=== PATIENT | female | born 1960 | race African-American/Black ===

== ENCOUNTER 2020-11-10 14:30 | Outpatient (RCR) | payer MEDICARE, SELFPAY ==
[2014-04-02 06:34] VITALS: BMI 34.6
[2020-11-10] MEDS: COVID-19 VACC, MRNA(PFIZER)/PF 30 MCG/0.3 ML SYRINGE IM (11:11)
[2020-12-01] MEDS: COVID-19 VACC, MRNA(PFIZER)/PF 30 MCG/0.3 ML SYRINGE IM (11:21)
== END 2021-02-02 23:59 ==
LOC: IMMUN 14:30
PROVIDERS: Visit Provider Family Medicine
DX: Z23 Encounter for immunization (principal)
CPT/HCPCS: 0001A; 0002A; 91300

== ENCOUNTER 2024-02-20 16:29 | Emergency (ER) | payer SELFPAY ==
[2024-02-20 16:30] VITALS: BP 123/87; PULSE 74; RESP 22; TEMP 36.1; O2SAT 100
--- NOTE | 2024-02-20 17:02 | RAD_ITS ---
INDICATION: pain EXAMINATION/TECHNIQUE: X-RAY - XR Hip Unilateral with Pelvis when performed; Min 4 Views COMPARISON: Pelvis with AP and frog-leg left hip FINDINGS: PELVIC BONES: No displaced fracture, destructive or sclerotic lesions. Note that overlapping bowel shadows may however obscure fine detail. Sacroiliac joints are unremarkable. No widening of the pubic symphysis. Moderate bilateral lower lumbar facet arthropathy. HIPS: Normal bilateral hip alignment with mild right hip joint space narrowing and osteophyte formation. Left hip joint spacing is grossly preserved. . SOFT TISSUES: No soft tissue swelling or gas. Multiple pelvic phleboliths. RAD/HIP, UNI W/ Pelvis 2-3 Views IMPRESSION: No evidence of displaced pelvic or hip fracture. Mild right hip degenerative change. Electronically Signed: Faisal Markham MD at 17:53 EDT ,
[2024-02-20 17:31] VITALS: BP 126/64; PULSE 68; RESP 20; O2SAT 98; BMI 38.3
[2024-02-20] MEDS: Morphine 4 MG/ML Syringe IV (19:04)
[2024-02-20] MEDS: Ondansetron 4 MG/2 ML Vial IV (19:05)
--- NOTE | 2024-02-20 20:35 | EDS_ITS ---
HPI History of Present Illness Chief Complaint: Lower Extremity Injury Informant: patient Onset/Context/Timing Onset: Weeks Injury: other (No known history of trauma) Timing: Continuous Quality: Dull and Aching Location: Lumbar, Buttock and Left Leg Current Severity: Moderate Maximum Severity: Severe Worsened by: improves with Movement and Bending Relieved by: Nothing Associated Symptoms Associated Symptoms: Radiation to Left Leg and - (She denies saddle anesthesia or paresthesia. She reports a foot drop on the left. She denies buckling of the knees going up or down steps. She has had no recent dental procedure.); Negative for Numbness, Tingling, Radiation to Right Leg, Fever, Abdominal Pain, Dysuria, Unable to Ambulate, Unable to Transfer, Urinary Retention, Urinary Incontinence, Constipation or Fecal Incontinence Narrative Narrative: Patient is a 63-year-old woman who presents with left lower back pain rating down the posterior aspect of her left leg to her foot midfoot plantar surface. She had a CT and MRI performed of her back. They CT revealed significant degenerative changes. MRI reveals marked degenerative changes as well. There is a mild generalized disc bulge noted at L2-L3 with facet arthropathy. There is a mild generalized disc bulge at L3-L4 with arthropathy and facet joint effusion. There is a generalized disc bulge eccentric to the left on L4-5. There is also a generalized disc bulge at L5-S1. The impression by Dr. Andreea Berry is mild multilevel degenerative changes. There is no severe canal or neural foramen stenosis. Patient denies fever, chills night sweats. Patient denies urologic symptoms of dysuria, frequency, urgency or hematuria. Nothing has helped her pain. [facility] and referred to the emergency room for back pain control. Since patient complained of pain in her thigh and x-ray was obtained of her hip per nurse protocol. This was reviewed by me and is negative. Prior similar symptoms: Yes Recent Illness/Hospitalization: No PFSH PFSH Medical History no medical history Home Medications ?Medication ?Instructions ?Recorded ?Last Taken ?Type ibuprofen 600 mg tablet 600 mg PO Q6H PRN PRN 04/04/14 Unknown Rx Mild/Moderate Pain ##40 cyclobenzaprine 10 mg tablet 10 mg PO TID 02/20/24 Unknown History gabapentin 300 mg capsule mg PO 02/20/24 Unknown History hydrocodone-acetaminophen 5-325mg 1 tab PO Q6H PRN PRN Pain 3 days 02/20/24 Unknown Rx 5mg-325mg #10 TABLETS Allergy/AdvReac Type Severity Reaction Status Date / Time No Known Allergies Allergy Verified 02/20/24 17:40 Family History Mother Diabetes Family History no significant family his Surgical History (Updated 02/20/24 @ 17:36 by Leandra Patel) History of ankle surgery History of hysterectomy Social History household members: spouse and family current occupational status: retired Smoking Status: Never smoker ROS ROS ED Constitutional Constitutional ED: Denies chills, fever(s), subjective or sweats Cardiovascular Cardiovascular: Denies chest pain, orthopnea or palpitations Respiratory/Chest Respiratory/Chest: Denies dyspnea, dyspnea on exertion or orthopnea Gastrointestinal Gastrointestinal: Denies abdominal pain, constipation, diarrhea, melena, nausea or vomiting Genitourinary Genitourinary ED: Denies dysuria, hematuria or urinary frequency Musculoskeletal Musculoskeletal: Reports back pain Neurologic Neurologic: Denies paresthesias or weakness Psychiatric Psychiatric: Denies anxiety or depression Hematologic/Lymphatic Hematologic/Lymphatic: Denies easy bleeding or easy bruising EXAM Physical Exam Const Vital Signs: 02/20/24 16:30 02/20/24 17:31 Temperature 97 F L Temperature Source Temporal Pulse Rate 74 68 Respiratory Rate 22 H 20 H Blood Pressure 123/87 H 126/64 H Blood Pressure Mean 99 84 Pulse Ox 100 98 Oxygen Delivery Method Room Air Room Air Positive well nourished and well developed Constitutional Narrative: BMI is 38.4. Patient appears uncomfortable. General Appearance ED: well developed; Negative for pallor HEENT HEENT Narrative: Head is atraumatic normocephalic. Ears normal. Nares patent. Mucosa moist. Eyes PERRL and EOMs intact bilaterally General Eye ED: Negative for pale conjunctiva or scleral icterus Neck no lymphadenopathy and supple Resp normal respiratory effort and clear to auscultation bilaterally Cardio regular rate, S1 normal heart sound, S2 normal heart sound and no murmurs GI normal to inspection, nondistended, normoactive bowel sounds, soft to palpation, non-tender, non-distended and no masses Back/Spine normal to inspection; Negative for no thoracic nor lumbar tenderness Back/Spine Narrative: Straight leg test is negative right and left. Patella and ankle reflex are 1+. Patient reported abnormal sensation S1 dermatome. L3-L5 is normal. There is no clonus Babinski sign. After patient was medicated she ambulated. There is no foot drop. Able to walk on heels and toes. Able to perform 1 legged squat. General Back: Negative for CVA tenderness Extremity normal to inspection and no clubbing, cyanosis or edema Neuro oriented x3 and no sensory deficits noted Motor Exam: strength 5/5 throughout Deep Tendon Reflexes: Rt Patellar (L4): 1+, Lt Patellar (L4): 1+, Rt Ankle (S1): 1+ and Lt Ankle (S1): 1+ Deep Tendon Reflexes Back: Rt Patellar (L4): 1+, Lt Patellar (L4): 1+, Rt Ankle (S1): 1+ and Lt Ankle (S1): 1+ Plantar Reflex: Downgoing: bilateral Psych mental status grossly normal Skin no rashes or lesions noted and no wounds General Skin Exam: Negative for jaundice or pallor MDM MDM MDM Narrative Medical decision making narrative: Patient has sciatica. Images were not obtained since I was able to access her CT and MRI lumbar interpretations. These were documented HPI. Patient was medicated improved. She was discharged home with pain medicine. She was encouraged to follow-up with pain management. Radiography Diagnostic Testing: Clinical Impression(s) from Imaging Studies Hip/Pelvis X-Ray 02/20/24 17:02 IMPRESSION: No evidence of displaced pelvic or hip fracture. Mild right hip degenerative change. Electronically Signed: Faisal Markham MD at 17:53 EDT , Discharge Plan Triage Chief Complaint: Lower Extremity Injury ED Provider: Hardik Mccarthy Dx/Rx/DC Orders Clinical Impression: DDD (degenerative disc disease), lumbar, Acute left-sided back pain with sciatica Instructions: ED Degenerative Disk Disease, ED Sciatica Prescriptions: New hydrocodone-acetaminophen 5-325 mg tablet 1 tab PO Q6H PRN PRN (Reason: Pain) 3 Days Qty: 10 0RF No Action ibuprofen 600 MG tablet 600 mg PO Q6H PRN PRN (Reason: Mild/Moderate Pain) Qty: 40 1RF Patient Comments: Pain Medication cyclobenzaprine 10 mg tablet 10 mg PO TID gabapentin 300 mg capsule PO Primary Care Provider: Dilcia Barksdale Referrals: Dilcia Barksdale DO [Primary Care Provider] - Print Language: Citizen Of [place] Disposition Disposition: Home, Self Care
[2024-02-20 20:50] VITALS: BP 119/76; PULSE 67; RESP 16; TEMP 36.1; O2SAT 98
== END 2024-02-20 20:51 | disposition home or self-care (01) ==
PROVIDERS: Emergency Provider Emergency Medicine; Visit Provider Emergency Medicine
DX: M51.36 Other intervertebral disc degeneration, lumbar region (principal); M16.11 Unilateral primary osteoarthritis, right hip; M54.32 Sciatica, left side; M46.86 Other specified inflammatory spondylopathies, lumbar region; M51.37 Other intervertebral disc degeneration, lumbosacral region; M25.48 Effusion, other site; M47.816 Spondylosis without myelopathy or radiculopathy, lumbar region
CPT/HCPCS: 73502; 96374; 96375; 99283; A4216; J2405